=== PATIENT | female | born 2000 | race Hispanic/Latino ===

== ENCOUNTER 2023-02-17 13:53 | Inpatient (IN) | payer BC, OTHER ==
[2023-02-18] MEDS ORDERED: Ibuprofen 800 MG TAB PO PRN (09:06)
[2023-02-18] MEDS ORDERED: Lidocaine 1% (PF) 30 ML VIAL SC PRN (09:06)
[2023-02-18 09:09] VITALS: BMI 35.6
[2023-02-18] MEDS ORDERED: NS w/ Oxytocin 30 units 500 ML IV SCH ×3 (09:15→10:15)
[2023-02-18] MEDS: Misoprostol 100 MCG TAB VAG SCH ×3 (09:44→17:24)
[2023-02-18] MEDS ORDERED: Misoprostol 100 MCG TAB VAG SCH (10:00)
[2023-02-18] MEDS ORDERED: Ondansetron PF 4 MG/2 ML Vial IVP PRN (10:05)
[2023-02-18] MEDS ORDERED: hydrALAZINE 20 MG/ML VIAL SLOW IVP PRN (10:05)
[2023-02-18] MEDS ORDERED: Promethazine HCl 25 MG/ML VIAL IM PRN (10:05)
[2023-02-18 10:18] LABS: Hemoglobin 9.8 g/dL (12.0-15.5); Mean Corpuscular HGB CONC 30.7 g/dL (32.0-36.0); Mean Corpuscular Hemoglobin 21.8 pg (27.0-33.0); Mean Corpuscular Volume 70.9 fl (81.6-98.3); Mean Platelet Volume 11.3 fl (7.4-10.4); Platelet Count 335 10x3/uL (150-450); RBC Distribution Width 17.8 % (11.5-14.5); White Blood Cell (WBC) Count 8.8 10x3/uL (3.5-10.5)
[2023-02-18 10:42] LABS: HBSAg Index 0.17 S/CO (0-0.99); Hep B Surf Ag - L&D Non-Reactive S/CO (NonReactive)
[2023-02-18 10:43] LABS: Syphilis Antibody Nonreactive (Nonreactive); Syphilis Antibody Index 0.06 S/CO (<1.00 Non-Reactive)
[2023-02-18] MEDS ORDERED: Fentanyl 2 mcg/Bup 0.1% Cadd 100 ML ONE (23:21)
[2023-02-19] MEDS ORDERED: ePHEDrine Sulfate 50 MG/10 ML VIAL SLOW IVP PRN (00:06)
[2023-02-19] MEDS ORDERED: Acetaminophen 325 MG TAB PO PRN (00:06)
[2023-02-19] MEDS ORDERED: Naloxone HCl 0.4 mg/ml Vial IVP PRN ×4 (00:06→05:09)
[2023-02-19] MEDS ORDERED: Lactated Ringer's 500 ML IV PRN (00:06)
[2023-02-19] MEDS ORDERED: diphenhydrAMINE 50 MG/ML VIAL IVP PRN ×2 (00:06→05:09)
[2023-02-19] MEDS ORDERED: Promethazine HCl 25 MG/ML VIAL IM PRN ×2 (00:06→05:09)
[2023-02-19] MEDS ORDERED: Moisturizing Cream (Eucerin) 113 GM JAR TOP PRN ×2 (00:06→05:09)
[2023-02-19] MEDS ORDERED: Ondansetron PF 4 MG/2 ML Vial IVP PRN ×2 (00:06→05:09)
[2023-02-19] MEDS ORDERED: Communication Order-Pharmacy FS SCH ×2 (00:15→05:15)
[2023-02-19] MEDS ORDERED: Fentanyl 2 mcg/Bupivacaine 0.1% Cassette 100 ML EPIDURAL SCH (00:15)
[2023-02-19] MEDS ORDERED: CEFAZOLIN 2 GM VIAL ONE (04:29)
[2023-02-19] MEDS ORDERED: Azithromycin 500 MG VIAL ONE ×2 (04:29→04:34)
[2023-02-19] MEDS ORDERED: Phenylephrine 40 MG/NS 250 ML 250 ML ONE (04:35)
[2023-02-19] MEDS ORDERED: Lidocaine 2% MPF 10 ML AMP (For Epidural Use) ONE ×2 (04:36→05:43)
[2023-02-19] MEDS ORDERED: Fentanyl 100 MCG/2 ML VIAL ONE (04:38)
[2023-02-19] MEDS ORDERED: Morphine PF 10 MG/10 ML VIAL ONE (04:48)
[2023-02-19] MEDS ORDERED: Dexamethasone 4 mg/ml Vial ONE (05:01)
[2023-02-19] MEDS ORDERED: Oxytocin 10 UNITS/ML VIAL ONE ×2 (05:01→05:29)
[2023-02-19] MEDS ORDERED: Ondansetron PF 4 MG/2 ML Vial ONE (05:01)
[2023-02-19] MEDS ORDERED: Promethazine HCl 25 MG SUPP PR PRN (05:09)
[2023-02-19] MEDS ORDERED: Ketorolac Tromethamine 30 MG/ML VIAL IVP PRN (05:09)
[2023-02-19] MEDS ORDERED: Naloxone HCl 0.4 mg/ml Vial IV PRN (05:09)
[2023-02-19 05:19] LABS: RapidComm Collect By CBN
[2023-02-19 05:22] LABS: RapidComm Collect By CBN; pH (Cord, venous) 7.283 (7.250-7.350)
[2023-02-19] MEDS ORDERED: diphenhydrAMINE 50 MG/ML VIAL ONE (05:24)
[2023-02-19] MEDS ORDERED: Misoprostol 200 MCG TAB ONE (05:48)
[2023-02-19] MEDS ORDERED: Ketorolac Tromethamine 30 MG/ML VIAL ONE (05:54)
[2023-02-19] MEDS ORDERED: Boostrix 0.5 ML (Tdap) VIAL (>/=7 yrs of age) IM ONE (06:00)
[2023-02-19] MEDS ORDERED: Loperamide HCl 2 MG CAP PO PRN (06:46)
[2023-02-19] MEDS ORDERED: Loperamide HCl 2 MG CAP PO SCH (07:00)
[2023-02-19] MEDS ORDERED: HYDROcodone/Acetaminophen 5/325 mg Tablet PO PRN (17:15)
[2023-02-19] MEDS: Prenatal Vitamin 1 TAB PO SCH (19:39)
[2023-02-19] MEDS: Ferrous Sulfate 325 MG TAB PO SCH (19:39)
[2023-02-19] MEDS: HYDROcodone/Acetaminophen 5/325 mg Tablet PO PRN (23:31)
[2023-02-20 04:23] LABS: Mean Corpuscular HGB CONC 30.2 g/dL (32.0-36.0); Mean Corpuscular Hemoglobin 21.7 pg (27.0-33.0); Mean Platelet Volume 11.5 fl (7.4-10.4); Platelet Count 237 10x3/uL (150-450); RBC Distribution Width 17.5 % (11.5-14.5); Red Blood Cell (RBC) Count 3.22 10x6/uL (3.90-5.03); White Blood Cell (WBC) Count 12.3 10x3/uL (3.5-10.5)
[2023-02-20] MEDS: Ibuprofen 800 MG TAB PO SCH ×3 (06:08→22:03)
[2023-02-20] MEDS: Misoprostol 100 MCG TAB VAG SCH ×2 (08:02→08:04)
[2023-02-20] MEDS: Ferrous Sulfate 325 MG TAB PO SCH ×2 (08:43→17:59)
[2023-02-20] MEDS: Senokot 8.6 MG TAB PO SCH (08:43)
[2023-02-20] MEDS: Simethicone Chewable 80 MG TAB PO PRN ×2 (08:43→18:00)
[2023-02-20] MEDS: Prenatal Vitamin 1 TAB PO SCH (08:43)
[2023-02-20] MEDS: HYDROcodone/Acetaminophen 5/325 mg Tablet PO PRN (11:28)
[2023-02-20 20:00] LABS: Hemoglobin 8.7 g/dL (12.0-15.5)
[2023-02-20] MEDS ORDERED: Iron Sucrose Complex 200 MG in Sodium Chloride 0.9% 100 ML IVPB SCH (20:00)
[2023-02-20] MEDS ORDERED: Sodium Chloride 0.9% 100 ML ONE (20:10)
[2023-02-21] MEDS ORDERED: Witch Hazel-Glycerin 1 EACH JAR TOP PRN (00:37)
[2023-02-21 03:23] LABS: Hemoglobin 8.3 g/dL (12.0-15.5); Mean Corpuscular HGB CONC 31.1 g/dL (32.0-36.0); Mean Corpuscular Hemoglobin 23.2 pg (27.0-33.0); Mean Corpuscular Volume 74.8 fl (81.6-98.3); Mean Platelet Volume 10.8 fl (7.4-10.4); Platelet Count 250 10x3/uL (150-450); RBC Distribution Width 18.2 % (11.5-14.5); Red Blood Cell (RBC) Count 3.57 10x6/uL (3.90-5.03); White Blood Cell (WBC) Count 11.1 10x3/uL (3.5-10.5)
[2023-02-21] MEDS: Ibuprofen 800 MG TAB PO SCH (04:53)
[2023-02-21] MEDS: Prenatal Vitamin 1 TAB PO SCH (09:06)
[2023-02-21] MEDS: Ferrous Sulfate 325 MG TAB PO SCH (09:06)
[2023-02-21 09:56] VITALS: BP 123/80; TEMP 97.7
[2023-02-21] MEDS: Senokot 8.6 MG TAB PO SCH (10:00)
== END 2023-02-21 13:15 | disposition home or self-care (01) | DRG 788 ==
LOC: EEVIPCON 02-18 08:26 → CSHLD 02-18 08:26 → CSHPP 02-19 09:20
PROVIDERS: ADMIT Obstetrics & Gynecology; ATTEND Obstetrics & Gynecology
PROC: 10D00Z1 Extraction of Products of Conception, Low, Open Approach (ICD-10-PCS; principal; 2023-02-19)
PROC: 10H07YZ Insertion of Other Device into Products of Conception, Via Natural or Artificial Opening (ICD-10-PCS; 2023-02-19)
PROC: 3E0DXGC Introduction of Other Therapeutic Substance into Mouth and Pharynx, External Approach (ICD-10-PCS; 2023-02-19)
PROC: 3E0P7VZ Introduction of Hormone into Female Reproductive, Via Natural or Artificial Opening (ICD-10-PCS; 2023-02-19)
PROC: 3E0E3GC Introduction of Other Therapeutic Substance into Products of Conception, Percutaneous Approach (ICD-10-PCS; 2023-02-19)
PROC: 30233N1 Transfusion of Nonautologous Red Blood Cells into Peripheral Vein, Percutaneous Approach (ICD-10-PCS; 2023-02-20)
DX: O76 Abnormality in fetal heart rate and rhythm complicating labor and delivery (principal); D50.9 Iron deficiency anemia, unspecified; F41.9 Anxiety disorder, unspecified; F31.9 Bipolar disorder, unspecified; O99.344 Other mental disorders complicating childbirth; O99.02 Anemia complicating childbirth; Z3A.39 39 weeks gestation of pregnancy; Z37.0 Single live birth
CPT/HCPCS: 36415; 36430; 51702; 82805; 85027; 86780; 86850; 86900; 86901; 87340; 88307; J1100; J1200; J1756; J1885; J2274; J2405; J2590; J3010; J3490; P9016